=== PATIENT | female | born 1980 | race Caucasian/White ===

== ENCOUNTER 2017-09-04 05:45 | Day surgery (SDC) | payer BC ==
[2017-09-03 08:39] LABS: HEMATOCRIT 42.6 % (36.0-48.0); HEMOGLOBIN 14.4 g/dL (12-16); MCH 29.9 pg (26.0-34.0); MCHC 33.8 g/dL (31.0-37.0); MCV 88.4 fL (80.0-100.0); MEAN PLATELET VOLUME 10.5 fL (7.4-10.4); RBC 4.82 10x6/uL (4.00-5.40); RDW 12.2 % (11.5-14.5); WBC 7.3 10x3/uL (4.8-10.8)
[~2017-09-04] VITALS: Ht 175.3 cm; Wt 98.9 kg
--- NOTE | ~2017-09-04 | OP ---
PATIENT NAME: SHEYLA MARSHALL MEDICAL RECORD: [id number] :76 LOCATION:D.OPS ADMISSION DATE: SURGEON: CONCEPCION KWOK MD DATE OF OPERATION: 09/04/2017 PREOPERATIVE DIAGNOSIS: Rectal pain. POSTOPERATIVE DIAGNOSIS: Posterior midline anal fissure. PROCEDURES PERFORMED: Lateral internal sphincterotomy. ANESTHESIA: General. COMPLICATIONS: None. SPECIMENS: None. Case was dirty. OPERATIVE COURSE: After consent was obtained, the patient was taken to the operating room and placed in the supine position on the operating table. Next, general anesthesia was given via endotracheal intubation. Thereafter, a timeout was taken to confirm the correct patient and procedure. The patient was then placed in the lithotomy position. The perineum was prepped and draped in typical sterile fashion. A 30 cc of local anesthetic were injected as a perineal block. Digital rectal exam was performed. No masses were identified. No internal or external hemorrhoid identified. The rectum was then serially dilated using the Cab[place]-Hill retractors. There was an acutely inflamed posterior midline fissure. At this time, a lateral internal sphincterotomy was performed. The mucosa was opened in the anal canal with electrocautery. Using fine-tipped dissector, the lateral internal sphincter muscle was identified. A partial internal sphincterotomy was performed. Three-quarters of the internal sphincter muscle were transected using electrocautery. The mucosa and submucosa were then closed using a 2-0 Vicryl suture. The fissure was cauterized. The rectum was then packed with Gelfoam and [place]. At the end of the procedure, all needle and instrument counts were correct. No complications occurred. The patient was extubated and transferred to the PACU in stable condition. TRANSINT:[id number] Voice Confirmation ID: [id number] DOCUMENT ID: [id number] CONCEPCION KWOK MD at 1147 CC: [id number] DICTATION DATE: 09/04/17 0847 [employer] M[employer] OPERATOR: 09/04/17 0951 [facility] [address] [id number]
[~2017-09-04 05:45] MED LIST: ADDERALL 30 MG30 MG PO; AMBIEN10 MG PO; DESERYL100 MG PO; DEXILANT60 MG PO; GLYCOLAX527 GM PO; LAMICTAL ODT200 MG PO; LASIX20 MG PO; PAXIL40 MG PO; PROAIR HFA8.5 GM INH; VALIUM5 MG PO; XANAX1 MG PO; ZOFRAN ODT4 MG/UDTAB PO
[2017-09-04 07:07] VITALS: BP 104/68; Ht 175.3 cm; Wt 98.9 kg
[2017-09-04] MEDS ORDERED: NORCO 7.5/325 T1 TA1 PO (08:42)
[2017-09-04] MEDS ORDERED: TUCKS MEDICATE1 EACH TOPICAL (08:44)
== END 2017-09-04 11:20 | disposition home or self-care (01) ==
LOC: D.OPS 05:45 → D.PAN 11:30 → D.OPS 11:30
PROVIDERS: Anesthesiology
DX: K60.2 Anal fissure, unspecified (principal); Z01.812 Encounter for preprocedural laboratory examination

== ENCOUNTER 2017-09-10 16:51 | Emergency (ER) | payer BC ==
[2017-09-04 07:07] VITALS: BMI 32.2
--- NOTE | ~2017-09-10 | PN ---
PATIENT:SHEYLA MARSHALL MEDICAL RECORD: [id number] LOCATION:D.ER ADMISSION DATE: 09/10/17 PROGRESS NOTE DATE OF SERVICE: 09/10/2017 I received a call from to transfer team, a patient of Dr. Kwok's was in [facility]. I spoke with Dr. Tenorio by phone. She was the Emergency Room physician. Reportedly, the patient has had increased anal pain. She has been having some anal bleeding and perhaps some discharge and also urinary retention. I asked that the patient be transferred here. A Ramirez catheter was placed prior to me seeing the patient. She actually looked pretty comfortable when I saw her. She was febrile. I told her that it will be very unusual for an anal operation to develop into an infection. The entire examination was performed with the presence of a female nurse, I noted no perianal erythema. No perianal bruising. This was some swelling present, but it was minor. I noted no drainage. The patient's temperature is above 101.0. For this reason, I am going to place her on oral antibiotics; however, my suspicion is that her infectious source is likely not due to the anal operation. Currently, the Ramirez catheter is in place. I have asked for the patient to come see me in the office in a few days and will remove the Ramirez catheter then. The patient has not been taking her Xanax. I told her not to take Xanax. I am going to put her on Valium instead. I told her it is a good anal muscle relaxant and will help prevent anal muscle spasms. She has not been taking much of her pain medicine. This is because she was afraid it would constipate her. I told her to begin taking her pain medicine. She states that she is almost out of her pain medicine and I wrote her a prescription for Dilaudid. I told her that she needs to have a bowel movement every day and that it will be normal for her to have bleeding with bowel movements. I told her that in order to stimulate a bowel movement that she needs to take MiraLax in the morning and at night. If this does not do the job, then I would recommend taking MiraLax 3 times a day. I have asked that she follow up with Dr. Kwok in the next 2-3 weeks. TRANSINT:[id number] Voice Confirmation ID: [id number] DOCUMENT ID: [id number] TERESA RESENDIZ MD at 1042 CC: CHRIS TENORIO MD and CONCEPCION KWOK MD [id number] DICTATION DATE: 09/10/17 184 RISK CONSULTANT: 09/10/17 2335 [facility] ER 09/10/17 [place] [id number] [place] [id number]
[~2017-09-10 16:51] MED LIST changes: +NORCO 7.5/325 T1 TA1 PO; +TUCKS MEDICATE1 EACH TOPICAL
[2017-09-10 17:52] LABS: BASOPHILS 0.2 % (0-2); EOSINOPHILS 3.9 % (0-7); HEMATOCRIT 42.5 % (36.0-48.0); HEMOGLOBIN 14.6 g/dL (12-16); IMMATURE GRANULOCYTES 0.4 % (0-5); LYMPHOCYTES 6.8 % (15-50); MCHC 34.4 g/dL (31.0-37.0); MCV 87.4 fL (80.0-100.0); MEAN PLATELET VOLUME 9.8 fL (7.4-10.4); NEUTROPHILS 81.7 % (40-80); PLATELET COUNT 220 10x3/uL (130-400); RBC 4.86 10x6/uL (4.00-5.40); RDW 12.4 % (11.5-14.5); WBC 12.2 10x3/uL (4.8-10.8)
== END 2017-09-10 18:49 | disposition home or self-care (01) ==
LOC: D.ER 16:51
PROVIDERS: Family Medicine
DX: G89.18 Other acute postprocedural pain (principal); R50.82 Postprocedural fever; F17.200 Nicotine dependence, unspecified, uncomplicated